=== PATIENT | female | born 1985 | race Caucasian/White ===

== ENCOUNTER 2016-10-28 11:19 | Inpatient (IN) | payer OTHER ==
[2016-10-28] MEDS ORDERED: LIDOCAINE Viscous 2% 15 ML UDCUP ONE (12:24)
[2016-10-28] MEDS ORDERED: LACTATED RINGERS 1,000 ML ONE (12:24)
[2016-10-28] MEDS ORDERED: OXYTOCIN 10 UNITS/ML VIAL ONE (12:24)
[2016-10-28] MEDS ORDERED: LIDOCAINE 1% (PRES FREE) 30 ML VIAL ONE (12:24)
[2016-10-28] MEDS ORDERED: IV START KIT ONE (12:24)
[2016-10-28] MEDS ORDERED: OXYTOCIN IN LR 500 ML IV ONE ×2 (12:24→12:31)
[2016-10-28] MEDS ORDERED: PUMP TUBING ONE (12:24)
[2016-10-28] MEDS ORDERED: MINERAL OIL 25 ML BOT ONE (12:24)
[2016-10-28] MEDS ORDERED: LACTATED RINGERS 1,000 ML IV PRN (12:31)
[2016-10-28] MEDS ORDERED: PENICILLIN G POTASSIUM 5 MMU in NS 0.9% (MINI-BAG PLUS) 100 ML IV ONE (12:31)
[2016-10-28 12:40] VITALS: BMI 23.6
[2016-10-28] MEDS ORDERED: LACTATED RINGERS 1,000 ML IV SCH (12:45)
[2016-10-28] MEDS ORDERED: PENICILLIN G POTASSIUM 5 MMU VIAL ONE (12:51)
[2016-10-28] MEDS ORDERED: NS 0.9% (MINI-BAG PLUS) 100 ML IV ONE (12:52)
[2016-10-28 13:32] LABS: HEMATOCRIT 35.4 % (37.0-47.0); HEMOGLOBIN 12.3 gm/l (12.0-16.0); MEAN CORPUSCULAR HEMOGLOBIN 30.2 pg (27.0-31.0); MEAN CORPUSCULAR HGB CONC 34.7 g/dl (33.0-37.0); RED CELL DISTRIBUTION WIDTH 12.6 % (11.5-14.5)
[2016-10-28] MEDS ORDERED: SENNOSIDES 8.6 MG TABLET PO PRN (15:17)
[2016-10-28] MEDS ORDERED: DOCUSATE SODIUM 100 MG CAPSULE PO PRN (15:17)
[2016-10-28] MEDS ORDERED: BENZOCAINE/MENTHOL 60 APPLIC/BOT TP PRN (15:17)
[2016-10-28] MEDS ORDERED: IBUPROFEN 800 MG TABLET PO PRN (15:17)
[2016-10-28] MEDS ORDERED: LANOLIN 50 APPLIC/7G TUBE TP PRN (15:17)
[2016-10-28] MEDS ORDERED: HYDROCODONE/ACETAMINOPHEN 5/325MG TABLET PO PRN (15:17)
[2016-10-28] MEDS ORDERED: MAGNESIUM HYDROXIDE 30 ML UDCUP PO PRN (15:17)
--- NOTE | 2016-10-28 15:18 | PCMDEL ---
Delivery Note - Labor 1st stage (hr/min):: 3hr 11min 2nd stage (hr/min):: 0hr 5min 3rd stage (hr/min):: 0hr 7min Total (hr/min):: 3hr 23min Pushed (hr/min):: 0hr 5min - Delivery Delivery (Date): 10/28/16 Delivery (Time): 13:46 Infant Gender: Female Presentation: Cephalic Position: OA Umbilical Cord: 3 Vessel Delayed Cord Clamping:: 2-3 min Placenta:: complete and intact EBL:: 300 ml Perineum:: inspected and intact Suture:: n/a Anesthesia/Meds:: none Length ROM:: 0hr 18min Comments:: vigorous female over intact perineum. passed to mom's chest. Delayed 3v cord clamping x 3 min. Active 3rd stage management w IV Pit. Placenta del complete and intact. FF w massage. Mother and infant bonding.
--- NOTE | 2016-10-28 15:40 | PCMAN ---
OB Admission Note - History : 2 Term: 1 : 0 Abortions (S&E): 0 Livin EDC:: 10/31/16 Gestational Age (weeks): 39 Days (#/7): 4 Admit Cervical Dilation:: 5 Admit Cervical Effacement (%):: 90 Admit Station:: -1 Admit Presentaton:: vertex Membrane Status: Bulging Labor Onset (Date): 10/28/16 Labor Onset (Time): 10:30 Contractions: Yes Contraction Frequency:: q5min Heart Rate:: 125 Status:: Cat II, prolonged decel x 1 Summary of Course:: 31 yo at 39 4/7 wks p/w active labor PNC: Arrived late to care from [facility], speaks only Colombian. Had care in [facility] , but repeated those in our lab at 33 wks. Had u/s at 36 wks which confirmed dates, notable for nuchal cord x 3. GBS positive. OBHx: '14 - at 41wks, complicated by Hemorrhage. PMH: Migraine HPV PSH: Clavicle surg Humerus fx surg SocHx: No tob/etoh/drugs Recently moved from [facility], speaks Colombian Immuniz: Flu 10/14/16 TdaP 08/05/16 - Labs Blood Type: O (+) positive GBS Status: Positive Abnormal Labs: None - Physical Exam General: Afebrile, Mild Distress Psych/Mental Status: Mood/Affect Appropriate, Judgment/Insight Intact Neurological: Grossly Intact, Alert, Normal Speech HEENT: Atraumatic, Mucous membr. moist/pink Lungs: Clear to Auscultation Bilaterally Cardiovascular: Regular Rate and Rhythm Abdomen: Other (gravid) Genitourinary: Normal Female Genitalia Rectal Exam: Deferred Extremities: Full ROM, No Edema Skin: Normal Color, Warm, Dry, Intact - Problems (1) Active labor at term Status: Acute Code: [id number] Assessment/Plan: 31 yo at 39 4/7 wks in active labor Admit Expt mgmt Plans natural for pain mgmt Will need to have phone systems development consultant as pt speaks Colombian (2) Group B streptococcal carriage complicating Status: Acute Code: O99.820 Assessment/Plan: PCN prophylaxis If less than 4 hrs at time of , will obs baby x 48 hrs Will need to have phone systems development consultant as pt speaks Colombian
[2016-10-28] MEDS ORDERED: PENICILLIN G 3 MIL UNIT PREMIX 3 MMU in Premix (D5W) 50 ml 1 EACH IV SCH (16:30)
[2016-10-29 06:46] LABS: HEMATOCRIT 37.5 % (37.0-47.0); HEMOGLOBIN 12.8 gm/l (12.0-16.0)
--- NOTE | 2016-10-29 09:57 | PDOC44 ---
- Subjective Day: 1 sore nipples Reports , Reports Lochia Light, Reports Tolerating Regular Diet - Objective Temp Pulse Resp BP Pulse Ox 99.7 F 70 14 102/62 10/29/16 09:09 10/29/16 09:09 10/29/16 09:09 10/29/16 09:09 Lab Results 10/29/16 10/28/16 06:20 12:35 WBC 12.4 H RBC 4.07 L Hgb 12.8 12.3 Hct 37.5 35.4 L Plt Count 202 Current Medications Generic Name Dose Route Start Last Admin Trade Name Freq PRN Reason Stop Dose Admin Acetaminophen/Hydrocodone Bitart 1 - 2 tab 10/28/16 15:17 [place] 5/325 PO Q4H PRN Pain (Moderate) Benzocaine/Menthol 1 applic 10/28/16 15:17 Dermoplast TP PRN PRN Patient Comfort Docusate Sodium 100 mg 10/28/16 15:17 Colace PO DAILY PRN Comfort/CONSTIPATION Emollient Ointment 1 applic 10/28/16 15:17 10/29/16 04:49 Zni-X-Pskeka TP 1 tube PRN PRN Administration sore nipples Ibuprofen 800 mg 10/28/16 15:17 Motrin PO Q6H PRN Pain (Mild) Magnesium Hydroxide 30 ml 10/28/16 15:17 Milk Of Magnesia PO BEDTIME PRN Constipation Senna 17.2 mg 10/28/16 15:17 Senokot PO BEDTIME PRN Comfort/CONSTIPATION Sodium Chloride 10 ml 10/28/16 15:17 Normal Saline 10ml Flush IV PRN PRN IV Flush Sodium Chloride 10 ml 10/28/16 17:00 10/29/16 04:51 Normal Saline 10ml Flush IV Not Given Q8HR JENIFER - Physical Exam General: Afebrile Psych/Mental Status: Mood/Affect Appropriate Neurological: Alert Lungs: Clear to Auscultation Bilaterally Cardiovascular: Regular Rate and Rhythm Breast: Soft, Nipples Cracked (blisters on nipples) Fundus: Firm, Below Umbilicus Rectal Exam: Deferred Extremities: Other (nt, no edema) Skin: Normal Color - Problems:Assessment/Plan (1) (normal spontaneous vaginal delivery) Status: Acute Assessment/Plan: doing well. consult, blisters forming on nipples routine care GBS pos, inadequte IAP Disposition: Anticipate DC Home Tomorrow
[2016-10-29] MEDS: HYDROCORTISONE 1% CREAM 20 APPLIC/30 G TUBE TP ONE (17:05)
[2016-10-29] MEDS: MUPIROCIN CALCIUM 2% OINT 22 APPLIC/22 G TUBE TP ONE (17:05)
[2016-10-30 09:16] VITALS: BP 113/73
--- NOTE | 2016-10-30 11:44 | PDOC39B ---
Hospital Course: ADMIT DATE: 10/28/16 DISCHARGE DATE: 10/30/16 ADMISSION DIAGNOSES: active labor PROCEDURES: HISTORY OF PRESENT ILLNESS: 31 year old G2 T1 L1 at 39 weeks 4 days presenting with active labor. HOSPITAL COURSE: The patient presented in active labor and delivered vigorous female without difficulty. By day of discharge the patient is ambulating, eating, voiding, and passing flatus without difficulty. Pain is controlled and lochia is appropriate. She is breast feeding well. - Physical Exam Vital Signs: Temp Pulse Resp BP Pulse Ox 97.9 F 64 14 113/73 10/30/16 09:01 10/30/16 09:01 10/30/16 09:01 10/30/16 09:01 General: Afebrile, No Acute Distress Psych/Mental Status: Mood/Affect Appropriate, Bonding Well Lungs: Clear to Auscultation Bilaterally Cardiovascular: Regular Rate and Rhythm, No Murmur Breast: Soft, Skin intact Fundus: Firm, Midline, Below Umbilicus Extremities: No Edema, No Tenderness - Discharge Diagnosis (1) (normal spontaneous vaginal delivery) Status: Acute Assessment/Plan: doing well. consult, blisters forming on nipples but not worsening. routine care GBS pos, inadequte IAP dc home today. f/u 6 weeks. - Discharge Plan Condition: Good Disposition: Home Additional Instructions: [facility] appt for Thursday, 2pm, 11/03/16. Bring baby ready to nurse. Come to front elevator operator of the [facility] Prescriptions: Ibuprofen [IBUPROFEN 600 MG TABLET (SHF)] 1 tab PO Q6H PRN #30 tablet PRN Reason: Pain Vit/Iron Fumarate/FA [ Tablet] 1 each PO DAILY #90 tablet Follow-Up: JOSÉ MIGU[facility] [place] [Outside] Theresa Jefferson PA-C [Physician Custom Grinder] - In 6 weeks
[2016-10-30] MEDS: HYDROCORTISONE 1% CREAM 20 APPLIC/30 G TUBE TP ONE (15:10)
[2016-10-30] MEDS: MUPIROCIN CALCIUM 2% OINT 22 APPLIC/22 G TUBE TP ONE (15:10)
== END 2016-10-30 13:30 | disposition home or self-care (01) | DRG 775 ==
LOC: FBCOUT 11:19 → FBC 11:29 → FBCOUT 12:09 → FBC 12:10
PROVIDERS: ADMIT Family Medicine; ATTEND Family Medicine
PROC: 10E0XZZ Delivery of Products of Conception, External Approach (ICD-10-PCS; principal; 2016-10-28)
DX: O76 Abnormality in fetal heart rate and rhythm complicating labor and delivery (principal); O99.824 Streptococcus B carrier state complicating childbirth; O09.33 Supervision of pregnancy with insufficient antenatal care, third trimester; O69.81X0 Labor and delivery complicated by cord around neck, without compression, not applicable or unspecified; Z3A.39 39 weeks gestation of pregnancy; Z37.0 Single live birth

== ENCOUNTER 2016-11-03 13:39 | Outpatient (CLI) | payer OTHER | END 2016-11-03 13:40 | disposition home or self-care (01) | LOC: BABIESSH 13:39 | PROVIDERS: ATTEND Family Medicine | DX: Z39.1 Encounter for care and examination of lactating mother (principal) ==